=== PATIENT | female | born 1945 | race Caucasian/White ===

== ENCOUNTER 2018-12-28 00:24 | Observation (INO) | payer MEDICARE ==
[~2018-12-28] VITALS: Ht 157.5 cm; Wt 77.3 kg
[2018-12-28] MEDS ORDERED: LISINOPRIL5 MG PO (00:32)
[2018-12-28] MEDS ORDERED: CRESTOR5 MG PO (00:32)
[2018-12-28] MEDS ORDERED: PLAVIX75 MG PO (00:32)
[2018-12-28] MEDS ORDERED: ZETIA10 MG PO (00:33)
[2018-12-28] MEDS ORDERED: ASPIRIN325 MG PO (00:33)
--- NOTE | 2018-12-28 00:55 | NUR ---
PT TO RADIOLOGY.
--- NOTE | 2018-12-28 01:08 | NUR ---
PT RETURNED FROM RADIOLOGY.
[2018-12-28 01:10] LABS: HEMATOCRIT 40.7 % (36.0-48.0); LYMPHOCYTES 34.2 % (15-50); MCH 29.9 pg (26.0-34.0); MCHC 34.4 g/dL (31.0-37.0); MCV 86.8 fL (80.0-100.0); MEAN PLATELET VOLUME 9.2 fL (7.4-10.4); NEUTROPHILS 54.2 % (40-80); PLATELET COUNT 176 10x3/uL (130-400); RBC 4.69 10x6/uL (4.00-5.40); RDW 12.9 % (11.5-14.5); WBC 5.5 10x3/uL (4.8-10.8)
[2018-12-28 01:27] VITALS: BP 138/61
[2018-12-28 02:14] LABS: APTT 24.5 SECONDS (22.8-39.4); INR 1.1 (0.85-1.17); PROTIME 13.7 SECONDS (11.6-15.0)
[2018-12-28 03:26] LABS: ALBUMIN 4.2 g/dL (3.4-5.0); ALKALINE PHOSPHATASE 75 U/L (46-116); ALT (SGPT) 28 U/L (10-68); BILIRUBIN - TOTAL 0.55 mg/dL (0.2-1.3); CALC OSMOLALITY 282 mosm/kg (275-300); CALCIUM 9.4 mg/dL (8.5-10.1); CARBON DIOXIDE 29.9 mmol/L (21.0-32.0); CHLORIDE - SERUM 103 mmol/L (98-107); GLUCOSE 154 mg/dL (74-106); POTASSIUM - SERUM 3.5 mmol/L (3.5-5.1); PROTEIN - SERUM 6.9 g/dL (6.4-8.2); SODIUM 139 mmol/L (136-145); UREA NITROGEN 19 mg/dL (7-18); eGFR NON AFRICAN AMERICAN 57 mL/min (90-120)
--- NOTE | 2018-12-28 03:37 | NUR ---
ARRIVED TO VIA WHEELCHAIR FROM ER. PATIENT IS ALERT AND ORIENTED RESTING COMFORTABLY IN BED. NO S/S OF DISTRESS. NO C/O PAIN. FAMILY AT BEDSIDE. CALL LIGHT WITHIN REACH. WILL CPOC.
[2018-12-28 03:39] LABS: CKMB 1.5 U/L (0.0-3.6); CREATINE KINASE 96 UL (21-215); MAGNESIUM - SERUM 2.1 mg/dL (1.8-2.4); THYROID STIMULATING HORMONE 9.32 uIU/mL (0.36-3.74); TROPONIN-I 0.021 ng/mL (0.000-0.060)
[2018-12-28 04:00] VITALS: BP 164/72
--- NOTE | 2018-12-28 07:33 | NUR ---
ROUNDING DONE WITH PATIENT RESTING IN BED. SON AT BEDSIDE WITH CPAP ON. ON HEART MONITOR SHOWING SB, HR 59. RIGHT AC PIC SEEN WITH SALINE LOCK, WILL PLACE ORANGE SWAB CAP.
[2018-12-28 07:55] LABS: CKMB 1.4 U/L (0.0-3.6); CREATINE KINASE 82 UL (21-215); TROPONIN-I < 0.017 ng/mL (0.000-0.060)
[2018-12-28 08:34] VITALS: BP 164/70
[2018-12-28 11:31] VITALS: BP 146/70
--- NOTE | 2018-12-28 11:39 | NUR ---
SITTING IN SIDE OF BED WITH SON STILL AT BEDSIDE. DENIES NEEDS AT THIS ITME.
[2018-12-28 12:55] VITALS: Ht 157.5 cm; Wt 77.3 kg
--- NOTE | 2018-12-28 13:12 | NUR ---
ORTHOSTATIC BLOOD PRESSURE ORDERED: STANDING 134/71 84 SUTTUBG 130/71 74 LAYING 136/52 69
--- NOTE | 2018-12-28 13:15 | NUR ---
PATIENT IS MADE NPO FOR CTA OF CAROTIDS.
[2018-12-28 13:18] LABS: CKMB 1.8 U/L (0.0-3.6); CREATINE KINASE 111 UL (21-215); TROPONIN-I < 0.017 ng/mL (0.000-0.060)
--- NOTE | 2018-12-28 13:58 | NUR ---
MEDS NOT GIVEN AT THIS TIME PATIENT IS NPO FOR CTA.
--- NOTE | 2018-12-28 14:28 | NUR ---
PATIENT IS INSTRUCTED TO USE [facility] FOR URINE SAMPLE. STATES TO UNDERSTANDING.
--- NOTE | 2018-12-28 15:04 | NUR ---
TO RADIOLOGY VIA WHEELCHAIR FOR CTA.
--- NOTE | 2018-12-28 15:32 | NUR ---
RETURNS FROM RADIOLOGY.
--- NOTE | 2018-12-28 15:42 | NUR ---
URINE SENT TO LAB ORDERED.
[2018-12-28 16:04] LABS: APPEARANCE CLEAR (CLEAR); BILIRUBIN NEGATIVE (NEGATIVE); COLOR YELLOW (YELLOW); GLUCOSE NEGATIVE (NEGATIVE); KETONE NEGATIVE (NEGATIVE); NITRITE NEGATIVE (NEGATIVE); PROTEIN NEGATIVE (NEGATIVE); UROBILINOGEN NORMAL (NORMAL)
--- NOTE | 2018-12-28 16:48 | NUR ---
AWAITING CTA RESULTS, SON IN ROOM AT THIS TIME. PATIENT DENIES NEEDS.
[2018-12-28 19:08] LABS: CKMB 1.6 U/L (0.0-3.6); CREATINE KINASE 98 UL (21-215)
[2018-12-28 19:12] LABS: TROPONIN-I < 0.017 ng/mL (0.000-0.060)
--- NOTE | 2018-12-28 19:20 | NUR ---
RESUMED CARE FROM JEMMA WYLIE. PT ALERT AND ORIENTED SITTING UP IN BED WITH FAMILY AT BEDSIDE. PT DENIES ANY PAIN OR NEEDS AT THIS TIME. WILL CONTINUE TO MONITOR. BED LOW CALL LIGHT WITHIN REACH.
[2018-12-28 20:00] VITALS: BP 162/71
[2018-12-29 00:30] VITALS: BP 153/70
--- NOTE | 2018-12-29 03:04 | NUR ---
PT RESTING COMFORTABLY WITH EYES CLOSED. RR EVEN AND UNLABORED. NO S/S OF DISTRESS. BED LOW CALL LIGHT WITHIN REACH. WILL CONTINUE TO MONITOR.
--- NOTE | 2018-12-29 04:29 | NUR ---
I have reviewed this patient and I concur with the Shift Assessment completed by the Licensed Practical Nurse today this shift.
[2018-12-29 05:00] VITALS: BP 163/71
[2018-12-29 07:10] LABS: BASOPHILS 0.2 % (0-2); EOSINOPHILS 2.7 % (0-7); HEMATOCRIT 39.8 % (36.0-48.0); HEMOGLOBIN 13.6 g/dL (12-16); LYMPHOCYTES 31.5 % (15-50); MCH 29.8 pg (26.0-34.0); MCHC 34.2 g/dL (31.0-37.0); MCV 87.1 fL (80.0-100.0); MEAN PLATELET VOLUME 10.2 fL (7.4-10.4); MONOCYTES 13.4 % (2-11); NEUTROPHILS 52.2 % (40-80); PLATELET COUNT 171 10x3/uL (130-400); RBC 4.57 10x6/uL (4.00-5.40); RDW 12.6 % (11.5-14.5)
[2018-12-29 07:30] LABS: ALBUMIN 3.7 g/dL (3.4-5.0); ANION GAP 12.8 mmol/L (8-16); BILIRUBIN - TOTAL 0.61 mg/dL (0.2-1.3); CALCIUM 8.7 mg/dL (8.5-10.1); CARBON DIOXIDE 25.4 mmol/L (21.0-32.0); CREATININE - SERUM 0.8 mg/dL (0.6-1.3); POTASSIUM - SERUM 3.2 mmol/L (3.5-5.1); PROTEIN - SERUM 6.5 g/dL (6.4-8.2)
[2018-12-29 07:41] LABS: WBC 4.1 10x3/uL (4.8-10.8)
--- NOTE | 2018-12-29 07:47 | NUR ---
SITTING ON SIDE OF BED WITH SONS IN ROOM. DENIES NEEDS EXCEPT NEEDING TO GO HOME. ON HEART MONITOR SHOWING SR, HR 70. GLASSES ON. RIGHT AC PIV SEEN WITH SALINE LOCK, ORANGE SWAB CAP IN USE. ON EP, K+ IS 3.2, WILL COVER WITH SUPPLEMENTS.
[2018-12-29 08:32] VITALS: BP 165/76
[2018-12-29 12:04] VITALS: BP 151/72
--- NOTE | 2018-12-29 12:32 | NUR ---
SALINE LOCK REMOVED WITH CATH TIP INTACT. COBAN APPLIED LIGHTLY TO HELP WITH BLEEDING CONTROL. INSTRUCTED PATIENT AND SONS TO REMOVE COBRAN IN 30 MIN OR LESS. STATES TO UNDERSTANDING. VERBAL AND WRITTEN DISCHARGE INSTRUCTIONS GIVEN TO PATIENT AND SONS.
--- NOTE | 2018-12-29 13:07 | NUR ---
DISCHARGED HOME VIA WHEELCHAIR.
--- NOTE | 2018-12-30 08:44 | MORECARE ---
CASE MANAGEMENT DISCHARGE SUMMARY PATIENT: PHILIP ACEVEDO UNIT: [id number] ADM DATE: 12/28/18 AGE: 73 : 41 SEX: F ROOM/BED: D.2127 AUTHOR: ANEGLI PATRICIA PHYSICIAN: REFERRING PHYSICIAN: NORMAN MILLER MD DATE OF SERVICE: 12/30/18 Discharge Plan Patient Name: PHILIP ACEVEDO Facility: [facility]:[place] : 1945 Planned Disposition: Home Anticipated Discharge Date: 12/29/18 Discharge Date: 12/29/2018 Expected LOS: 1 Initial Reviewer: [email or web address] Initial Review Date: 12/30/2018 Generated: 12/30/18 9:44 am Coverage Notice Reviewer: [email or web address] Neeta Hawthorne Notice Issued Date-Time: 12/29/2018 11:53 Notice Type: Medicare Outpatient Observation Notice Notice Delivered To: Patient Relationship to Patient: Self Car Distributor Name: Delivery Method: HAND - Hand Delivered Tequila Days: Prior Verbal Notification: Recipient Understood Notice: Yes Recipient Signature: Yes Med Rec Note Co-signed by Attending: Coverage Notice Comment: BLAIR DISCUSSED WITH PATIENT AND HER SON JORGE, AFTER VERBAL CONSENT OBTAINED. Patient Name: PHILIP ACEVEDO Page [phone] at 0844 All edits/amendments must be made on the electronic document DICTATION DATE: 12/30/18 0843 FIRST AID NURSE: ADRIAN 12/30/18 0843 RPT#: [id number] DC DATE:12/29/18 STATUS: DIS IN [facility] [address] [place] [id number] END OF REPORT
== END 2018-12-29 13:08 | disposition home or self-care (01) ==
LOC: D.ER 00:24 → D.M2 02:02 → OBSVTIME 02:02 → D.M2 02:02
PROVIDERS: Family Medicine; ADMIT Internal Medicine Nephrology; ATTEND Internal Medicine Nephrology
DX: E86.9 Volume depletion, unspecified (principal); R55 Syncope and collapse; E03.9 Hypothyroidism, unspecified; N17.9 Acute kidney failure, unspecified; I10 Essential (primary) hypertension; E78.5 Hyperlipidemia, unspecified; I25.10 Atherosclerotic heart disease of native coronary artery without angina pectoris; W19.XXXA Unspecified fall, initial encounter